=== PATIENT | female | born 1975 | race American Indian/Alaskan Native ===

== ENCOUNTER 2019-03-01 08:48 | Emergency (ER) | payer SELFPAY ==
[2019-03-01 08:57] VITALS: BP 140/62
[2019-03-01] MEDS ORDERED: TORADOL IV ONE (09:36)
[2019-03-01] MEDS ORDERED: BENADRYL IV ONE (09:36)
[2019-03-01] MEDS ORDERED: NACL 0.9% 1000 ML 1,000 ML IV ONE (09:36)
[2019-03-01] MEDS ORDERED: REGLAN IV ONE (09:36)
--- NOTE | 2019-03-01 09:48 | Emergency Department Report ---
ED Headache HPI - General Chief Complaint: Headache Stated Complaint: SOB/MIGRAINE Time Seen by Provider: 03/01/19 09:09 - History of Present Illness Initial Comments: 43-year-old female presents to ED with headache 3 days. Patient reports pain is right-sided, with associated photophobia, nausea and vomiting. Patient reports history of migraines and anemia. States this migraine was associated with aura of flashing lights, which she usually does not have. Denies any numbness, tingling, weakness. No relief with [id number]-[id number] meds. Patient states last migraine was one year ago. Patient also reports that she has been having dyspnea on exertion for the last couple of days. Reports history of asthma. Denies cough, fever. Reports chronic lower extremity swelling, however no change or increase in the swelling. Timing/Duration: episodic, other (3 days) Quality: moderate Modifying Factors: worse with: exposure to light, movement Associated Symptoms: nausea/vomiting. denies: fever/chills, numbness in legs/feet, stiff neck, vision changes Allergies/Adverse Reactions: Allergies No Known Allergies Allergy (Unverified 03/01/19 08:53) Home Medications: Ambulatory Orders Butalb/Acetamin/Caff 50-325-40 [Fioricet] 1 tab PO Q6HR PRN #10 tab 03/01/19 Ferrous Sulfate [Iron 325 MG] 325 mg PO TID #90 tablet 03/01/19 ED Review of Systems ROS: Stated complaint: SOB/MIGRAINE Other details as noted in HPI Comment: All other systems reviewed and negative Constitutional: denies: chills, fever Respiratory: shortness of breath. denies: cough Cardiovascular: chest pain Gastrointestinal: nausea, vomiting Neurological: headache. denies: numbness, paresthesias ED Past Medical Hx - Past Medical History Previous Medical History?: Yes Hx Arthritis: Yes Hx Headaches / Migraines: Yes Hx Asthma: Yes - Surgical History Past Surgical History?: Yes Additional Surgical History: C section - Social History Smoking Status: Never Smoker Substance Use Type: None - Medications Home Medications: Home Medications Medication Instructions Recorded Confirmed Last Taken Type Butalb/Acetamin/Caff 50-325-40 1 tab PO Q6HR PRN #10 tab 03/01/19 Unknown Rx [Fioricet] Ferrous Sulfate [Iron 325 MG] 325 mg PO TID #90 tablet 03/01/19 Unknown Rx ED Physical Exam - General Limitations: No Limitations General appearance: alert, in no apparent distress, obese - Head Head exam: Present: atraumatic, normocephalic - Eye Eye exam: Present: normal appearance - ENT ENT exam: Present: mucous membranes moist - Neck Neck exam: Present: normal inspection. Absent: meningismus - Respiratory Respiratory exam: Present: normal lung sounds bilaterally. Absent: respiratory distress, wheezes - Cardiovascular Cardiovascular Exam: Present: regular rate, normal rhythm - GI/Abdominal GI/Abdominal exam: Absent: distended - Extremities Exam Extremities exam: Present: pedal edema. Absent: calf tenderness - Neurological Exam Neurological exam: Present: alert, oriented X3, CN II-XII intact. Absent: motor sensory deficit - Psychiatric Psychiatric exam: Present: normal affect, normal mood - Skin Skin exam: Present: warm, dry, intact, normal color ED Course Vital Signs 03/01/19 08:55 Temperature 98.0 F Pulse Rate 71 Respiratory 18 Rate Blood Pressure 140/62 O2 Sat by Pulse 97 Oximetry ED Medical Decision Making - Lab Data Result diagrams: 03/01/19 09:39 03/01/19 09:39 - EKG Data -: EKG Interpreted by Sc EKG shows normal: sinus rhythm, axis, intervals, QRS complexes, ST-T waves Rate: normal - EKG Data Interpretation: no acute changes - Radiology Data Radiology results: report reviewed, image reviewed - Medical Decision Making - migraine DICKSON resolved - cardiac workup unremarkable; EKG, trop negative - CXR negative - SOB poss due to anemia - not currently taking iron pills, will prescribe - return precautions given - outpt f/u advised - Differential Diagnosis migraine, ACS, pneumonia, pulm edema, anemia Critical care attestation.: If time is entered above; I have spent that time in minutes in the direct care of this critically ill patient, excluding procedure time. ED Disposition Clinical Impression: Migraine, Anemia Disposition: DC-01 TO HOME OR SELFCARE Is pt being admited?: No Condition: Stable Instructions: Migraine Headache (ED), Iron Deficiency Anemia (ED), Anemia (ED) Prescriptions: Butalb/Acetamin/Caff 50-325-40 [Fioricet] 1 tab PO Q6HR PRN #10 tab PRN Reason: Headache Ferrous Sulfate [Iron 325 MG] 325 mg PO TID #90 tablet Referrals: [facility] MD THANIA [Primary Care Provider] - 3-5 Days Forms: Work/School Release Form(ED) Time of Disposition: 13:13
[2019-03-01 10:06] LABS: Basophils % (Auto) 0.5 % (0.0-1.8); Eosinophils # (Auto) 0.2 K/mm3 (0.0-0.4); Eosinophils % (Auto) 3.3 % (0.0-4.3); Hematocrit 22.4 % (30.3-42.9); Hemoglobin 6.9 gm/dl (10.1-14.3); Lymphocytes # (Auto) 1.5 K/mm3 (1.2-5.4); Lymphocytes % (Auto) 26.9 % (13.4-35.0); Mean Corpuscular HGB Conc 31 % (30-34); Monocytes # (Auto) 0.6 K/mm3 (0.0-0.8); Platelet Count 275 K/mm3 (140-440); Red Blood Count 3.39 M/mm3 (3.65-5.03); Red Cell Distribution Width 17.7 % (13.2-15.2)
[2019-03-01 10:11] LABS: Mean Corpuscular Volume 66 fl (79-97)
[2019-03-01 10:20] LABS: BUN/Creatinine Ratio 16; Blood Urea Nitrogen 13 mg/dL (7-17); Calcium 8.5 mg/dL (8.4-10.2); Hemolysis Index 0
--- NOTE | 2019-03-01 10:41 | XRay Report ---
ROUTINE CHEST, TWO VIEWS: HISTORY: Cough. The trachea, heart, mediastinal contour, lung rivera and bony thorax are unremarkable. IMPRESSION: Unremarkable chest x-ray.
--- NOTE | 2019-03-01 13:13 | Cat Scan Report ---
CT HEAD WITHOUT CONTRAST: HISTORY: Headache. TECHNIQUE: Sequential 2.5mm CT images. COMPARISON: none. FINDINGS: Cerebral Parenchyma: Within normal limits. Cerebellum: Within normal limits. Brainstem: Within normal limits. Ventricles: Normal. Sella: Normal. Extra-axial spaces: Normal. Basal Cisterns: Normal. Intracranial Hemorrhage: None. Midline Shift: None. Calvarium: Normal. Sinuses: Normal. Mastoid Air Cells: Normal. Visualized Orbits: Normal. IMPRESSION: Cranial CT scan within normal limits.
== END 2019-03-01 13:29 | disposition home or self-care (01) ==
LOC: ED 08:48
DX: G43.909 Migraine, unspecified, not intractable, without status migrainosus (principal); D64.9 Anemia, unspecified; J45.909 Unspecified asthma, uncomplicated; M19.90 Unspecified osteoarthritis, unspecified site; R11.2 Nausea with vomiting, unspecified
CPT/HCPCS: 36415; 70450; 71046; 80048; 83880; 84484; 84703; 85025; 93005; 93010; 96361; 96374; 96375; 99284; J1200; J1885; J2765; J7030

== ENCOUNTER 2019-08-15 01:47 | Emergency (ER) | payer BC ==
--- NOTE | 2019-08-15 05:30 | Emergency Department Report ---
Upper Extremity - HPI Chief Complaint: Extremity Problem,Nontraumatic Stated Complaint: WRIST PAIN, ARM PAIN Time Seen by Provider: 08/15/19 04:51 Other History: Patient is a 44-year-old female presents emergency room with complaints of right upper arm pain and right wrist pain that began yesterday. pt believes she slept wrong on the arm the night before. she states she occasionally has tingling in her fingers. she states that she has a hx of arthritis and carpal tunnel. 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 she denies any fall, injury, or weakness. PMHx migraines, sciatica. she denies any allergies to meds. pt states that she has an orthopedic doctor in [place]. ED Review of Systems ROS: Stated complaint: WRIST PAIN, ARM PAIN Other details as noted in HPI Comment: All other systems reviewed and negative ED Past Medical Hx - Past Medical History Previous Medical History?: Yes Hx Arthritis: Yes Hx Headaches / Migraines: Yes Hx Asthma: Yes - Surgical History Past Surgical History?: Yes Additional Surgical History: C section - Social History Smoking Status: Never Smoker Substance Use Type: None - Medications Home Medications: Home Medications Medication Instructions Recorded Confirmed Last Taken Type Butalb/Acetamin/Caff 50-325-40 1 tab PO Q6HR PRN #10 tab 03/01/19 Unknown Rx [Fioricet] Ferrous Sulfate [Iron 325 MG] 325 mg PO TID #90 tablet 03/01/19 Unknown Rx Cyclobenzaprine [Flexeril] 10 mg PO QHS PRN #12 tablet 08/15/19 Unknown Rx Naproxen [EC-Naproxen] 500 mg PO BID PRN #14 tablet. 08/15/19 Unknown Rx Upper Extremity Exam - Exam General: Vital signs noted. No distress. Alert and acting appropriately. Shoulder Exam: Yes Normal Range of Motion in Shoulder (mild discomfort upon full flexion), No Shoulder Tenderness, No Clavicle Tenderness, No Shoulder Deformity, No AC Joint Tenderness Arm Exam: Yes Arm/Humerus Tenderness (mild TTP of the right upper arm, no deformity, no ecchymosis, no erythema, no edema, FROM of the RUE) Elbow: Yes Normal Range of Motion in Elbow, No Elbow Tenderness, No Elbow Deformity Forearm: No Forearm Tenderness, No Forearm Deformity, No Pain with Pronation, No Pain with Supination Wrist: Yes Normal ROM in Wrist (mild discomfort with flexion and extension), No Wrist Tenderness, No Wrist Deformity, No Snuffbox Tenderness, No Pain with Axial Thumb Compression Hand: Yes Normal ROM in Digit(s), No Hand Tenderness, No Hand Deformity, No Digit Tenderness, No Digit(s) Deformity, No Tendon Dysfunction CMS Exam: Yes Normal Distal Pulses, Yes Normal Capillary Refill, Yes Normal Distal Sensation, No Broken Skin ED Medical Decision Making - Medical Decision Making Patient is a 44-year-old female presents emergency room with complaints of right upper arm pain and right wrist pain that began yesterday. pt believes she slept wrong on the arm the night before. she states she occasionally has tingling in her fingers. she states that she has a hx of arthritis and carpal tunnel. 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 she denies any fall, injury, or weakness. PMHx migraines, sciatica. she denies any allergies to meds. pt states that she has an orthopedic doctor in [place]. VSS. on exam: mild discomfort upon full flexion of the right shoulder, FROM of the right shoulder, no bony TTP, no AC joint tenderness, no sulcus sign, clavicles are equal, mild TTP of the right upper arm, no deformity, no ecchymosis, no erythema, no edema, FROM of the RUE, mild discomfort with flexion and extension of the right wrist, FROM of the right wrist, no bony TTP, no snuffbox tenderness, no edema, no ecchymosis, no erythema, neurovascularly intact. Patient given prescription for naproxen and Flexeril. advised pt to please take medication as prescribed as needed. Do not drive or operate heavy machinery while taking muscle relaxer. May use ice pack, heating pad, rest,epsom salt bath. Follow-up with your orthopedic doctor in the next 2-3 days. Return to the emergency room for any new or worsening symptoms. - Differential Diagnosis strain, sprain, carpal tunnel, arthritis, DJD Critical care attestation.: If time is entered above; I have spent that time in minutes in the direct care of this critically ill patient, excluding procedure time. ED Disposition Clinical Impression: Right arm pain Disposition: TO HOME OR SELFCARE Is pt being admited?: No Does the pt Need Aspirin: No Condition: Stable Instructions: Carpal Tunnel Syndrome (ED), Arthralgia (ED) Additional Instructions: Please take medication as prescribed as needed. Do not drive or operate heavy machinery while taking muscle relaxer. May use ice pack, heating pad, rest,epsom salt bath. Follow-up with your orthopedic doctor in the next 2-3 days. Return to the emergency room for any new or worsening symptoms. Prescriptions: Cyclobenzaprine [Flexeril] 10 mg PO QHS PRN #12 tablet PRN Reason: Muscle Spasm Naproxen [EC-Naproxen] 500 mg PO BID PRN #14 tablet.dr NEGRON Reason: pain Referrals: your, orthopedic doctor [Other] - 2-3 Days Time of Disposition: 05:29 Print Language: SWEDISH
[2019-08-15] MEDS ORDERED: traMADol 50 MG TAB PO ONE (05:31)
[2019-08-15 06:28] VITALS: BP 141/85
== END 2019-08-15 06:36 | disposition home or self-care (01) ==
LOC: ED 01:47
DX: M79.621 Pain in right upper arm (principal); M25.531 Pain in right wrist; M19.90 Unspecified osteoarthritis, unspecified site; G43.909 Migraine, unspecified, not intractable, without status migrainosus; Z79.899 Other long term (current) drug therapy

== ENCOUNTER 2020-02-21 11:32 | Emergency (ER) | payer SELFPAY ==
--- NOTE | 2020-02-21 11:55 | Emergency Department Report ---
Blank Doc - Documentation Documentation: 44-year-old female that presents with heavy vaginal bleeding and clots x2 weeks. Stated is being treated for anemia. Stated has SOB and becomes diaphoretic at times. This initial assessment/diagnostic orders/clinical plan/treatment(s) is/are subject to change based on patient's health status, clinical progression and re- assessment by fellow clinical providers in the ED. Further treatment and workup at subsequent clinical providers discretion. Patient/guardians urged not to elope from the ED as their condition may be serious if not clinically assessed and managed. Initial orders include: 1- Patient sent to [facility] for further evaluation and treatment 2- cardiac workup 3- UA
[2020-02-21 12:28] LABS: Basophils % (Auto) 0.9 % (0.0-1.8); Eosinophils # (Auto) 0.2 K/mm3 (0.0-0.4); Eosinophils % (Auto) 3.6 % (0.0-4.3); Hematocrit 35.5 % (30.3-42.9); Hemoglobin 11.8 gm/dl (10.1-14.3); Lymphocytes # (Auto) 1.4 K/mm3 (1.2-5.4); Lymphocytes % (Auto) 29.5 % (13.4-35.0); Mean Corpuscular HGB Conc 33 % (30-34); Mean Corpuscular Volume 84 fl (79-97); Monocytes # (Auto) 0.4 K/mm3 (0.0-0.8); Monocytes % (Auto) 9.1 % (0.0-7.3); Platelet Count 244 K/mm3 (140-440); Red Blood Count 4.23 M/mm3 (3.65-5.03); Red Cell Distribution Width 16.6 % (13.2-15.2)
[2020-02-21 12:37] LABS: INR 1.09 (0.87-1.13)
[2020-02-21 12:53] LABS: Alanine Aminotransferase 13 units/L (7-56); Albumin 3.9 g/dL (3.9-5); BUN/Creatinine Ratio 15; Blood Urea Nitrogen 12 mg/dL (7-17); Hemolysis Index 6
[2020-02-21 13:42] LABS: Bilirubin,Urine NEG (Negative); Blood,Urine LG (Negative); Color,Urine Yellow (Yellow); Mucus,Urine FEW /HPF; RBC,Urine > 182.0 /HPF (0.0-6.0); Urobilinogen,Urine < 2.0 mg/dL (<2.0)
--- NOTE | 2020-02-21 14:23 | XRay Report ---
CHEST 2 VIEWS INDICATION: Chest Pain. COMPARISON: 03/01/2019. FINDINGS: Support devices: None. Heart: Within normal limits. Lungs/Pleura: No acute air space or interstitial disease. No significant pleural effusion. IMPRESSION: No acute findings. Signer Name: Henrry Jacinto MD Signed: 02/21/2020 2:18 PM Workstation Name: [id number]
--- NOTE | 2020-02-21 15:15 | Emergency Department Report ---
ED General Adult HPI - General Chief complaint: Vaginal Bleeding Stated complaint: BLEEDING [id number]/SOB/SWEATING Time Seen by Provider: 02/21/20 11:52 Source: patient Mode of arrival: Ambulatory Limitations: No Limitations - History of Present Illness Initial comments: 44-year-old -[place] female patient with history of asthma, migraines, and arthritis presents with complaints of heavy vaginal bleeding for the past 2 weeks along with shortness of breath with exertion and diaphoresis. Patient states she has been taking iron for anemia for the past 6 months and follows with her PCP for this. She denies history of uterine fibroids, however states 2 years ago she had a uterine ultrasound performed that showed a mass that she was instructed to follow-up on but did not do so. She denies any abdominal pain, cough, fever/chills/sweats, chest pain, dizziness, leg pain/swelling, recent long travel/surgeries, hemoptysis, hormone use, or history of cancer. Patient states she is going through a new pad every 2-4 hours. She is not currently following with an [employer]. - Related Data Previous Rx's Medication Instructions Recorded Last Taken Type Butalb/Acetamin/Caff 50-325-40 1 tab PO Q6HR PRN #10 tab 03/01/19 Unknown Rx [Fioricet] Ferrous Sulfate [Iron 325 MG] 325 mg PO TID #90 tablet 03/01/19 Unknown Rx Cyclobenzaprine [Flexeril] 10 mg PO QHS PRN #12 tablet 08/15/19 Unknown Rx Naproxen [EC-Naproxen] 500 mg PO BID PRN #14 tablet. 08/15/19 Unknown Rx Sulfamethoxazole/Trimethoprim 1 each PO BID 5 Days #10 tablet 02/21/20 Unknown Rx [Bactrim DS TAB] Allergies Allergy/AdvReac Type Severity Reaction Status Date / Time No Known Allergies Allergy Unverified 03/01/19 08:53 ED Review of Systems ROS: Stated complaint: BLEEDING [id number]/SOB/SWEATING Other details as noted in HPI Constitutional: diaphoresis, malaise. denies: chills, fever Respiratory: SOB with exertion. denies: cough, SOB at rest Cardiovascular: edema (States chronic bilateral pedal edema). denies: chest pain, palpitations Gastrointestinal: denies: abdominal pain, nausea, diarrhea, constipation Genitourinary: abnormal menses. denies: urgency, dysuria, frequency, hematuria, discharge Musculoskeletal: denies: back pain Skin: denies: rash, lesions Neurological: denies: headache, weakness Hematological/Lymphatic: denies: easy bleeding, swollen glands ED Past Medical Hx - Past Medical History Previous Medical History?: Yes Hx Arthritis: Yes Hx Headaches / Migraines: Yes Hx Asthma: Yes - Surgical History Past Surgical History?: Yes Additional Surgical History: C section - Social History Smoking Status: Never Smoker Substance Use Type: None - Medications Home Medications: Home Medications Medication Instructions Recorded Confirmed Last Taken Type Butalb/Acetamin/Caff 50-325-40 1 tab PO Q6HR PRN #10 tab 03/01/19 Unknown Rx [Fioricet] Ferrous Sulfate [Iron 325 MG] 325 mg PO TID #90 tablet 03/01/19 Unknown Rx Cyclobenzaprine [Flexeril] 10 mg PO QHS PRN #12 tablet 08/15/19 Unknown Rx Naproxen [EC-Naproxen] 500 mg PO BID PRN #14 tablet.dr 08/15/19 Unknown Rx Sulfamethoxazole/Trimethoprim 1 each PO BID 5 Days #10 tablet 02/21/20 Unknown Rx [Bactrim DS TAB] ED Physical Exam - General Limitations: No Limitations General appearance: alert, in no apparent distress, obese - Head Head exam: Present: atraumatic, normocephalic - Eye Eye exam: Present: normal appearance. Absent: scleral icterus - Neck Neck exam: Present: normal inspection - Respiratory Respiratory exam: Present: normal lung sounds bilaterally. Absent: respiratory distress, chest wall tenderness - Cardiovascular Cardiovascular Exam: Present: regular rate, normal rhythm. Absent: systolic murmur, diastolic murmur, rubs, gallop - GI/Abdominal GI/Abdominal exam: Present: soft, normal bowel sounds. Absent: distended, tenderness, guarding, rebound, rigid - Extremities Exam Extremities exam: Present: normal inspection, pedal edema (Bilateral nonpitting). Absent: calf tenderness (No lower leg swelling noted) - Back Exam Back exam: Present: full ROM. Absent: CVA tenderness (R), CVA tenderness (L) - Neurological Exam Neurological exam: Present: alert, oriented X3 - Psychiatric Psychiatric exam: Present: normal affect, normal mood - Skin Skin exam: Present: warm, dry, intact, normal color. Absent: rash, cyanosis, diaphoretic, erythema, petechiae, ecchymosis ED Course Vital Signs 02/21/20 02/21/20 02/21/20 11:53 11:59 16:43 Temperature 97.9 F Pulse Rate 79 93 H Respiratory 20 Rate Blood Pressure 182/101 146/98 Blood Pressure 145/90 [Right] O2 Sat by Pulse 97 99 Oximetry 02/21/20 16:52 Temperature Pulse Rate Respiratory 18 Rate Blood Pressure Blood Pressure [Right] O2 Sat by Pulse 99 Oximetry ED Medical Decision Making - Lab Data Result diagrams: 02/21/20 12:00 02/21/20 12:00 Lab Results 02/21/20 02/21/20 02/21/20 Range/Units 12:00 12:00 12:00 WBC 4.9 (4.5-11.0) K/mm3 RBC 4.23 (3.65-5.03) M/mm3 Hgb 11.8 (10.1-14.3) gm/dl Hct 35.5 (30.3-42.9) % MCV 84 (79-97) fl MCH 28 (28-32) pg MCHC 33 (30-34) % RDW 16.6 H (13.2-15.2) % Plt Count 244 (140-440) K/mm3 Lymph % (Auto) 29.5 (13.4-35.0) % [place] % (Auto) 9.1 H (0.0-7.3) % Eos % (Auto) 3.6 (0.0-4.3) % Baso % (Auto) 0.9 (0.0-1.8) % Lymph # 1.4 (1.2-5.4) K/mm3 [place] # 0.4 (0.0-0.8) K/mm3 Eos # 0.2 (0.0-0.4) K/mm3 Baso # 0.0 (0.0-0.1) K/mm3 Seg Neutrophils % 56.9 (40.0-70.0) % Seg Neutrophils # 2.8 (1.8-7.7) K/mm3 PT 13.9 (12.2-14.9) Sec. INR 1.09 (0.87-1.13) APTT 33.0 (24.2-36.6) Sec. Sodium 138 (137-145) mmol/L Potassium 3.9 (3.6-5.0) mmol/L Chloride 105.5 (98-107) mmol/L Carbon Dioxide 21 L (22-30) mmol/L Anion Gap 15 mmol/L BUN 12 (7-17) mg/dL Creatinine 0.8 (0.7-1.2) mg/dL Estimated GFR > 60 ml/min BUN/Creatinine Ratio 15 % Glucose 101 H (65-100) mg/dL Calcium 9.0 (8.4-10.2) mg/dL Total Bilirubin 0.40 (0.1-1.2) mg/dL AST 15 (5-40) units/L ALT 13 (7-56) units/L Alkaline Phosphatase 73 (35-129) units/L Troponin T < 0.010 (0.00-0.029) ng/mL Total Protein 6.8 (6.3-8.2) g/dL Albumin 3.9 (3.9-5) g/dL Albumin/Globulin Ratio 1.3 % HCG, Qual (Negative) Urine Color (Yellow) Urine Turbidity (Clear) Urine pH (5.0-7.0) Ur Specific [place] (1.003-1.030) Urine Protein (Negative) mg/dL Urine Glucose (UA) (Negative) mg/dL Urine Ketones (Negative) mg/dL Urine Blood (Negative) Urine Nitrite (Negative) Urine Bilirubin (Negative) Urine Urobilinogen (<2.0) mg/dL Ur Leukocyte Esterase (Negative) Urine WBC (Auto) (0.0-6.0) /HPF Urine RBC (Auto) (0.0-6.0) /HPF U Epithel Cells (Auto) (0-13.0) /HPF Urine Mucus /HPF 02/21/20 02/21/20 Range/Units 12:00 Unknown WBC (4.5-11.0) K/mm3 RBC (3.65-5.03) M/mm3 Hgb (10.1-14.3) gm/dl Hct (30.3-42.9) % MCV (79-97) fl MCH (28-32) pg MCHC (30-34) % RDW (13.2-15.2) % Plt Count (140-440) K/mm3 Lymph % (Auto) (13.4-35.0) % [place] % (Auto) (0.0-7.3) % Eos % (Auto) (0.0-4.3) % Baso % (Auto) (0.0-1.8) % Lymph # (1.2-5.4) K/mm3 [place] # (0.0-0.8) K/mm3 Eos # (0.0-0.4) K/mm3 Baso # (0.0-0.1) K/mm3 Seg Neutrophils % (40.0-70.0) % Seg Neutrophils # (1.8-7.7) K/mm3 PT (12.2-14.9) Sec. INR (0.87-1.13) APTT (24.2-36.6) Sec. Sodium (137-145) mmol/L Potassium (3.6-5.0) mmol/L Chloride (98-107) mmol/L Carbon Dioxide (22-30) mmol/L Anion Gap mmol/L BUN (7-17) mg/dL Creatinine (0.7-1.2) mg/dL Estimated GFR ml/min BUN/Creatinine Ratio % Glucose (65-100) mg/dL Calcium (8.4-10.2) mg/dL Total Bilirubin (0.1-1.2) mg/dL AST (5-40) units/L ALT (7-56) units/L Alkaline Phosphatase (35-129) units/L Troponin T (0.00-0.029) ng/mL Total Protein (6.3-8.2) g/dL Albumin (3.9-5) g/dL Albumin/Globulin Ratio % HCG, Qual Negative (Negative) Urine Color Yellow (Yellow) Urine Turbidity Slightly-cloudy (Clear) Urine pH 6.0 (5.0-7.0) Ur Specific [place] 1.019 (1.003-1.030) Urine Protein 30 mg/dl (Negative) mg/dL Urine Glucose (UA) Neg (Negative) mg/dL Urine Ketones Neg (Negative) mg/dL Urine Blood Lg (Negative) Urine Nitrite Neg (Negative) Urine Bilirubin Neg (Negative) Urine Urobilinogen < 2.0 (<2.0) mg/dL Ur Leukocyte Esterase Neg (Negative) Urine WBC (Auto) 27.0 H (0.0-6.0) /HPF Urine RBC (Auto) > 182.0 (0.0-6.0) /HPF U Epithel Cells (Auto) 7.0 (0-13.0) /HPF Urine Mucus Few /HPF - EKG Data EKG shows normal: sinus rhythm Rate: bradycardia (58) - Radiology Data Radiology results: report reviewed Transvaginal. Duplex Color Doppler used: Yes. COMPARISON: None available FINDINGS: UTERUS: - Appearance: Enlarged - Size (cm): 13.4 x 8.0 x 9.8 - Endometrial Complex (if present): No significant abnormality.. Thickness in cm (if measured) = 1.1 - Mass or cyst: Small fibroid of the anterior fundus is slightly exophytic and measures 2.3 cm. - Additional findings: Small to both in cysts of the cervix. RIGHT ADNEXA: No significant ovarian cyst or mass. Normal color Doppler blood flow. LEFT ADNEXA: Cyst versus follicle measuring 2.4 cm. Normal color Doppler blood flow. URINARY BLADDER: Not visualized. FREE FLUID: None. ADDITIONAL FINDINGS: None. IMPRESSION: 1. Enlarged uterus with small exophytic fibroid. 2. 2.4 cm cyst versus follicle of the left ovary. CHEST 2 VIEWS INDICATION: Chest Pain. COMPARISON: 03/01/2019. FINDINGS: Support devices: None. Heart: Within normal limits. Lungs/Pleura: No acute air space or interstitial disease. No significant pleural effusion. IMPRESSION: No acute findings. - Medical Decision Making 44-year-old -[place] female patient here with 2 weeks of heavy vaginal bleeding and shortness of breath with exertion only. PERC score = 0, Wells score = 0. CBC, CMP, and troponin are WNL. Chest x-ray is normal. Patient mentioned history of an abnormal mass in her uterus, so a transvaginal ultrasound was performed that showed a pedunculated fibroid and ovarian cyst. UA is positive for UTI. Vitals are normal. Patient is well-appearing and stable for discharge home. Recommend follow-up with primary care provider in 3 to 5 days. Strict return precautions were discussed in great detail with patient who verbalized understanding. Critical care attestation.: If time is entered above; I have spent that time in minutes in the direct care of this critically ill patient, excluding procedure time. ED Disposition Clinical Impression: Dysmenorrhea, Pedunculated leiomyoma of uterus UTI (urinary tract infection) Qualifiers: Urinary tract infection type: acute cystitis Hematuria presence: without hematuria Qualified Code(s): N30.00 - Acute cystitis without hematuria Disposition: TO HOME OR SELFCARE Is pt being admited?: No Condition: Stable Instructions: Urinary Tract Infection in Women (ED), Uterine Fibroids (ED), Dysmenorrhea (ED) Prescriptions: Sulfamethoxazole/Trimethoprim [Bactrim DS TAB] 1 each PO BID 5 Days #10 tablet Referrals: PRIMARY CARE, [Primary Care Provider] - 3-5 Days Forms: Work/School Release Form(ED)
--- NOTE | 2020-02-21 16:47 | Ultrasound Report ---
ULTRASOUND PELVIS INDICATION / CLINICAL INFORMATION: abnormal vaginal bleeding, hx of uterine mass. TECHNIQUE: Transvaginal. Duplex Color Doppler used: Yes. COMPARISON: None available FINDINGS: UTERUS: - Appearance: Enlarged - Size (cm): 13.4 x 8.0 x 9.8 - Endometrial Complex (if present): No significant abnormality.. Thickness in cm (if measured) = 1.1 - Mass or cyst: Small fibroid of the anterior fundus is slightly exophytic and measures 2.3 cm. - Additional findings: Small to both in cysts of the cervix. RIGHT ADNEXA: No significant ovarian cyst or mass. Normal color Doppler blood flow. LEFT ADNEXA: Cyst versus follicle measuring 2.4 cm. Normal color Doppler blood flow. URINARY BLADDER: Not visualized. FREE FLUID: None. ADDITIONAL FINDINGS: None. IMPRESSION: 1. Enlarged uterus with small exophytic fibroid. 2. 2.4 cm cyst versus follicle of the left ovary. Signer Name: Gordon Corley MD Signed: 02/21/2020 4:42 PM Workstation Name: [id number]
[2020-02-21 16:51] VITALS: BP 146/98
== END 2020-02-21 18:07 | disposition home or self-care (01) ==
LOC: ED 11:32
DX: D25.9 Leiomyoma of uterus, unspecified (principal); N39.0 Urinary tract infection, site not specified; N94.6 Dysmenorrhea, unspecified; M19.90 Unspecified osteoarthritis, unspecified site; G43.909 Migraine, unspecified, not intractable, without status migrainosus; J45.909 Unspecified asthma, uncomplicated; Z79.899 Other long term (current) drug therapy; Z98.890 Other specified postprocedural states
CPT/HCPCS: 36415; 71046; 76830; 80053; 81001; 84484; 84703; 85025; 85610; 85730; 87086; 93005

== ENCOUNTER 2020-07-31 10:55 | Emergency (ER) | payer OTHER ==
--- NOTE | 2020-07-31 11:40 | Event Note ---
ED Screening Note Date of service: 07/31/20 Time: 11:37 ED Screening Note: 45-year-old obese -[place] female presents to the emergency room stating that she has had a headache and is already taking Aleve 1 pill once a day. Patient states that she has been dealing with this for about 5 days and headaches got worse today. Patient states that she last took Aleve this morning but 1 dose. Patient is only taking 1 dose of Aleve daily where it should be twice a day. Patient reports that she was seen at her doctor before and was told that her blood pressure was fine. Patient was last placed on blood pressure medication here February 27, 2020 of amlodipine and hydrochlorothiazide. This initial assessment/diagnostic orders/clinical plan/treatment(s) is/are subject to change based on patients health status, clinical progression and re- assessment by fellow clinical providers in the ED. Further treatment and workup at subsequent clinical providers discretion. Patient/guardian urged not to elope from the ED as their condition may be serious if not clinically assessed and managed. Initial orders include:
[2020-07-31] MEDS ORDERED: diphenhydrAMINE 25 MG CAP PO ONE (12:45)
[2020-07-31] MEDS ORDERED: SUMAtriptan SUCCINATE 6 MG/0.5 ML INJ SUB-Q ONE (12:45)
[2020-07-31] MEDS ORDERED: METOCLOPRAMIDE 10 MG TAB PO ONE (12:45)
--- NOTE | 2020-07-31 13:15 | Emergency Department Report ---
ED Headache HPI - General Chief Complaint: Headache Stated Complaint: HEADACHE Time Seen by Provider: 07/31/20 12:32 - History of Present Illness Initial Comments: Patient is a 45-year-old female presents emergency room with complaints of an intermittent headache that began 4 days ago. She states that she initially had it 4 days ago but it resolved after taking ibuprofen. She states that today she began to have a left frontal and headache behind the left eye that began while she was at work today. She did not take anything for her symptoms today. She states that her eyes began to water and her nose began to run. She denies any nausea, vomiting, diarrhea, fever, neck stiffness, numbness, weakness, gait disturbance, speech disturbance, vision changes. She has a past medical history of migraines but is not currently on any migraine medication. She denies any allergies to medications. She had a normal CT head in 2019. Allergies/Adverse Reactions: Allergies No Known Allergies Allergy (Unverified 03/01/19 08:53) Home Medications: Ambulatory Orders Ferrous Sulfate [Iron 325 MG] 325 mg PO TID #90 tablet 03/01/19 Cyclobenzaprine [Flexeril 10 MG TAB] 10 mg PO QHS PRN #12 tablet 08/15/19 Famotidine [Pepcid] 20 mg PO BID #30 tablet 02/27/20 hydroCHLOROthiazide [HCTZ] 25 mg PO QDAY #30 tablet 02/27/20 Butalb/Acetamin/Caff 50-325-40 [Fioricet 50-325-40] 1 tab PO Q8HR PRN #12 tab 07/31/20 amLODIPine 5 mg PO QDAY #30 tablet 07/31/20 ED Review of Systems ROS: Stated complaint: HEADACHE Other details as noted in HPI Comment: All other systems reviewed and negative ED Past Medical Hx - Past Medical History Hx Hypertension: Yes Hx Arthritis: Yes Hx Headaches / Migraines: Yes Hx Asthma: Yes - Surgical History Additional Surgical History: C section - Social History Smoking Status: Never Smoker - Medications Home Medications: Home Medications Medication Instructions Recorded Confirmed Last Taken Type Ferrous Sulfate [Iron 325 MG] 325 mg PO TID #90 tablet 03/01/19 02/27/20 Unknown Rx Cyclobenzaprine [Flexeril 10 MG 10 mg PO QHS PRN #12 tablet 08/15/19 02/27/20 02/26/20 20:00 Rx TAB] Famotidine [Pepcid] 20 mg PO BID #30 tablet 02/27/20 Unknown Rx hydroCHLOROthiazide [HCTZ] 25 mg PO QDAY #30 tablet 02/27/20 Unknown Rx Butalb/Acetamin/Caff 50-325-40 1 tab PO Q8HR PRN #12 tab 07/31/20 Unknown Rx [Fioricet 50-325-40] amLODIPine 5 mg PO QDAY #30 tablet 07/31/20 Unknown Rx ED Physical Exam - General Limitations: No Limitations General appearance: alert, in no apparent distress - Head Head exam: Present: atraumatic, normocephalic - Eye Eye exam: Present: normal appearance, PERRL, EOMI. Absent: periorbital swelling, periorbital tenderness Pupils: Present: normal accommodation - ENT ENT exam: Present: mucous membranes moist - Respiratory Respiratory exam: Present: normal lung sounds bilaterally. Absent: respiratory distress, wheezes, rales, rhonchi, stridor, chest wall tenderness, accessory muscle use, decreased breath sounds, prolonged expiratory - Cardiovascular Cardiovascular Exam: Present: regular rate, normal rhythm, normal heart sounds. Absent: systolic murmur, diastolic murmur, rubs, gallop - Neurological Exam Neurological exam: Present: alert, oriented X3, CN II-XII intact, normal gait. Absent: motor sensory deficit - Psychiatric Psychiatric exam: Present: normal affect, normal mood - Skin Skin exam: Present: warm, dry, intact ED Course Vital Signs 07/31/20 07/31/20 11:00 14:12 Temperature 97.7 F 98.0 F Pulse Rate 64 55 L Respiratory 17 18 Rate Blood Pressure 146/102 Blood Pressure 184/71 [Left] O2 Sat by Pulse 100 99 Oximetry ED Medical Decision Making - Medical Decision Making Patient is a 45-year-old female presents emergency room with complaints of an intermittent headache that began 4 days ago. She states that she initially had it 4 days ago but it resolved after taking ibuprofen. She states that today she began to have a left frontal and headache behind the left eye that began while she was at work today. She did not take anything for her symptoms today. She states that her eyes began to water and her nose began to run. She denies any nausea, vomiting, diarrhea, fever, neck stiffness, numbness, weakness, gait disturbance, speech disturbance, vision changes. She has a past medical history of migraines but is not currently on any migraine medication. She denies any allergies to medications. She had a normal CT head in 2019. vitals with elevated blood pressure, otherwise stable. She states that she did previously take blood pressure medication in February but was taken off by her primary care doctor and has not been monitoring her blood pressure. Patient given Imitrex, Benadryl, Reglan and her headache completely resolved and she was feeling much better and ready to go home. Patient will be placed on low-dose blood pressure medication and advised close primary care follow-up. Patient given prescription for Fioricet to take as needed for headache. Her symptoms appear most consistent with a cluster headache. advised pt Please take medication as prescri bed. Increase your water intake. Eat a low-sodium diet. Incorporate 30 to 60 minutes of daily exercise. Please keep a blood pressure log and take this to the primary care doctor. Return to emergency room for any new or worsening symptoms. Critical care attestation.: If time is entered above; I have spent that time in minutes in the direct care of this critically ill patient, excluding procedure time. ED Disposition Clinical Impression: Elevated blood pressure reading Headache Qualifiers: Headache type: unspecified Headache chronicity pattern: acute headache Intractability: not intractable Qualified Code(s): R51.9 - Headache, unspecified Disposition: DC-01 TO HOME OR SELFCARE Is pt being admited?: No Does the pt Need Aspirin: No Condition: Stable Instructions: Cluster Headache, Uylr-[id number], Low-Sodium Eating Plan Additional Instructions: Please take medication as prescribed. Increase your water intake. Eat a low- sodium diet. Incorporate 30 to 60 minutes of daily exercise. Please keep a blood pressure log and take this to the primary care doctor. Return to emergency room for any new or worsening symptoms. Prescriptions: amLODIPine 5 mg PO QDAY #30 tablet Butalb/Acetamin/Caff 50-325-40 [Fioricet 50-325-40] 1 tab PO Q8HR PRN #12 tab PRN Reason: Headache Referrals: KATHERINE TRUJILLO MD [Staff Physician] - 2-3 Days [facility] [Provider Group] - 2-3 Days Forms: Work/School Release Form(ED) Time of Disposition: 14:07 Print Language: GEORGIAN
[2020-07-31 14:13] VITALS: BP 184/71
== END 2020-07-31 14:20 | disposition home or self-care (01) ==
LOC: ED 10:55
DX: R03.0 Elevated blood-pressure reading, without diagnosis of hypertension (principal); M19.90 Unspecified osteoarthritis, unspecified site; G43.909 Migraine, unspecified, not intractable, without status migrainosus; J45.909 Unspecified asthma, uncomplicated; Z79.899 Other long term (current) drug therapy
CPT/HCPCS: 96372; 99282; J3030

== ENCOUNTER 2020-10-02 17:04 | Emergency (ER) | payer OTHER ==
--- NOTE | 2020-10-02 17:35 | Emergency Department Report ---
Blank Doc - Documentation Documentation: 45-year-old female past medical history of hypertension, asthma, arthritis, mi graines presents emerged department complaining of some issues with a dull headache associated with some dizziness off and on with numbness and tingling throughout her whole body. She reports no issues with dysphagia. Reports no loss of vision she reports no chest pain reports no palpitations she reports no trauma. Examination his holds a full conversation is no ataxia gait is coordinated and smooth strength is equal bilateral no facial asymmetry is noted. This initial assessment/diagnostic orders/clinical plan/treatment(s) is/are subject to change based on patients health status, clinical progression and re- assessment by fellow clinical providers in the ED. Further treatment and workup at subsequent clinical providers discretion. Patient/guardian urged not to elope from the ED as their condition may be serious if not clinically assessed and managed. Initial orders include: Plan will proceed with a neurological evaluation involving CT scan labs chest x- rays and EKG at this present time the patient does not appear to be presenting with a stroke
--- NOTE | 2020-10-02 18:05 | Cat Scan Report ---
CT head/brain wo con INDICATION: Stroke symptoms. TECHNIQUE: Routine CT head. All CT scans at this location are performed using CT dose reduction for A CELENA by means of automated exposure control. COMPARISON: March 01 2019 FINDINGS: Intracranial: Hogan-white matter differentiation is maintained. No intracranial hemorrhage. No extra a xial collection. No hydrocephalus. No herniation. Sinuses: Paranasal sinuses and mastoid air cells are essentially clear. Orbits: Globes are intact. Calvarium: No acute fracture. IMPRESSION: 1. No acute intracranial abnormality. Signer Name: Jaycob Redd MD Signed: 10/02/2020 6:00 PM Workstation Name: [id number]
--- NOTE | 2020-10-02 18:08 | XRay Report ---
CHEST 2 VIEWS INDICATION: dizizness. COMPARISON: 09/27/2019 FINDINGS: Support devices: None. Heart: Within normal limits. Lungs/Pleura: No acute air space or interstitial disease. No significant pleural effusion. IMPRESSION: No acute findings. Signer Name: Henrry Jacinto MD Signed: 10/02/2020 6:04 PM Workstation Name: [id number]
[2020-10-02] MEDS ORDERED: MECLIZINE 25 MG TAB PO ONE (18:22)
--- NOTE | 2020-10-02 18:35 | Emergency Department Report ---
ED General Adult HPI - General Chief complaint: Neuro Symptoms/Deficit Stated complaint: DIZZINESS, HEADACHE, TINGLING IN LEFT HAND Time Seen by Provider: 10/02/20 18:16 Source: patient Mode of arrival: Ambulatory Limitations: No Limitations - History of Present Illness Initial comments: Patient is 45-year-old female with history of hypertension and migraine. Patient presented to the ER complaining of several day history of headache, dizziness and generalized body numbness. Patient stated that she was seen by her primary care physician and diagnosed with inner ear infection and started on prednisone. Patient stated that her symptoms is not improving. Patient denied any weakness, focal numbness or tingling sensation. No bowel or bladder inco ntinence. Patient is moving all extremities with no difficulties. Patient with no evidence of ataxia. Stroke scale is 0. -: days(s) Location: head - Related Data Previous Rx's Medication Instructions Recorded Last Taken Type Ferrous Sulfate [Iron 325 MG] 325 mg PO TID #90 tablet 03/01/19 Unknown Rx Cyclobenzaprine [Flexeril 10 MG 10 mg PO QHS PRN #12 tablet 08/15/19 02/26/20 20:00 Rx TAB] Famotidine [Pepcid] 20 mg PO BID #30 tablet 02/27/20 Unknown Rx hydroCHLOROthiazide [HCTZ] 25 mg PO QDAY #30 tablet 02/27/20 Unknown Rx Butalb/Acetamin/Caff 50-325-40 1 tab PO Q8HR PRN #12 tab 07/31/20 Unknown Rx [Fioricet 50-325-40] amLODIPine 5 mg PO QDAY #30 tablet 07/31/20 Unknown Rx Allergies Allergy/AdvReac Type Severity Reaction Status Date / Time No Known Allergies Allergy Unverified 03/01/19 08:53 ED Review of Systems ROS: Stated complaint: DIZZINESS, HEADACHE, TINGLING IN LEFT HAND Other details as noted in HPI Comment: All other systems reviewed and negative Constitutional: denies: chills, fever ENT: ear pain Respiratory: denies: cough, orthopnea, shortness of breath, SOB with exertion Cardiovascular: denies: chest pain, palpitations, dyspnea on exertion Gastrointestinal: denies: abdominal pain, nausea, vomiting Musculoskeletal: denies: back pain Neurological: headache, numbness, paresthesias. denies: weakness, confusion, abnormal gait, vertigo Psychiatric: denies: suicidal thoughts ED Past Medical Hx - Past Medical History Previous Medical History?: Yes Hx Hypertension: Yes Hx Arthritis: Yes Hx Headaches / Migraines: Yes Hx Asthma: Yes - Surgical History Past Surgical History?: Yes Additional Surgical History: C section - Social History Smoking Status: Never Smoker Substance Use Type: None - Medications Home Medications: Home Medications Medication Instructions Recorded Confirmed Last Taken Type Ferrous Sulfate [Iron 325 MG] 325 mg PO TID #90 tablet 03/01/19 02/27/20 Unknown Rx Cyclobenzaprine [Flexeril 10 MG 10 mg PO QHS PRN #12 tablet 08/15/19 02/27/20 02/26/20 20:00 Rx TAB] Famotidine [Pepcid] 20 mg PO BID #30 tablet 02/27/20 Unknown Rx hydroCHLOROthiazide [HCTZ] 25 mg PO QDAY #30 tablet 02/27/20 Unknown Rx Butalb/Acetamin/Caff 50-325-40 1 tab PO Q8HR PRN #12 tab 07/31/20 Unknown Rx [Fioricet 50-325-40] amLODIPine 5 mg PO QDAY #30 tablet 07/31/20 Unknown Rx ED Physical Exam - General Limitations: No Limitations General appearance: alert, in no apparent distress - Head Head exam: Present: atraumatic, normocephalic, normal inspection - Eye Eye exam: Present: normal appearance, PERRL - ENT ENT exam: Present: normal exam, normal orophraynx, mucous membranes moist - Neck Neck exam: Present: normal inspection, full ROM. Absent: tenderness, meningismus - Respiratory Respiratory exam: Present: normal lung sounds bilaterally - Cardiovascular Cardiovascular Exam: Present: regular rate, normal rhythm, normal heart sounds - GI/Abdominal GI/Abdominal exam: Present: soft, normal bowel sounds. Absent: distended, tenderness, guarding, rebound, rigid, organomegaly, mass, hernia - Extremities Exam Extremities exam: Present: normal inspection, full ROM, normal capillary refill. Absent: pedal edema, calf tenderness - Back Exam Back exam: Present: normal inspection, full ROM. Absent: CVA tenderness (R), CVA tenderness (L) - Neurological Exam Neurological exam: Present: alert, oriented X3, CN II-XII intact, normal gait, reflexes normal. Absent: abnormal gait, motor sensory deficit - Psychiatric Psychiatric exam: Present: normal mood - Skin Skin exam: Present: warm, intact, normal color ED Course Vital Signs 10/02/20 10/02/20 10/02/20 17:39 18:43 18:46 Temperature 97 F L Pulse Rate 64 48 L 48 L Respiratory 18 17 Rate Blood Pressure 143/88 Blood Pressure 145/85 [Right] O2 Sat by Pulse 95 99 Oximetry ED Medical Decision Making - Lab Data Result diagrams: 10/02/20 18:17 10/02/20 18:17 - EKG Data -: EKG Interpreted by Ga EKG shows normal: sinus rhythm Rate: bradycardia - EKG Data Interpretation: no acute changes - Radiology Data Radiology results: report reviewed - Medical Decision Making Patient is 45-year-old female with history of hypertension and migraine. Patient presented to the ER complaining of several day history of headache, dizziness and generalized body numbness. Patient stated that she was seen by her primary care physician and diagnosed with inner ear infection and started on prednisone. Patient stated that her symptoms is not improving. Patient denied any weakness, focal numbness or tingling sensation. No bowel or bladder incontinence. Patient is moving all extremities with no difficulties. Patient with no evidence of ataxia. Stroke scale is 0. Patient received meclizine, morphine and Reglan. Patient stated the symptoms completely resolved. CT brain is negative for acute finding. Labs reviewed and is unremarkable. I advised patient to follow-up with her primary care physician in the next 2 to 3 days and to return to the ER if she develop any new symptoms. Critical care attestation.: If time is entered above; I have spent that time in minutes in the direct care of this critically ill patient, excluding procedure time. ED Disposition Clinical Impression: Dizziness Disposition: DC-01 TO HOME OR SELFCARE Is pt being admited?: No Condition: Stable Instructions: Dizziness, [id number] Referrals: PRIMARY CARE, [Primary Care Provider] - 3-5 Days
[2020-10-02 18:36] LABS: Basophils % (Auto) 0.3 % (0.0-1.8); Eosinophils % (Auto) 0.1 % (0.0-4.3); Hematocrit 39.5 % (30.3-42.9); Lymphocytes # (Auto) 1.2 K/mm3 (1.2-5.4); Lymphocytes % (Auto) 16.5 % (13.4-35.0); Mean Corpuscular HGB Conc 33 % (30-34); Mean Corpuscular Volume 88 fl (79-97); Monocytes # (Auto) 0.4 K/mm3 (0.0-0.8); Monocytes % (Auto) 5.4 % (0.0-7.3); Platelet Count 188 K/mm3 (140-440); Red Cell Distribution Width 16.9 % (13.2-15.2)
[2020-10-02 18:50] LABS: Creatine Kinase MB 1.9 ng/mL (0.0-4.0)
[2020-10-02 18:51] LABS: Alanine Aminotransferase 14 units/L (7-56); Albumin 4.3 g/dL (3.9-5); BUN/Creatinine Ratio 23; Blood Urea Nitrogen 18 mg/dL (7-17); Calcium 9.1 mg/dL (8.4-10.2); Hemolysis Index 4
[2020-10-02 18:53] LABS: INR 1.12 (0.87-1.13)
[2020-10-02 18:54] LABS: Partial Thromboplastin Time 30.9 Sec. (24.2-36.6); Thrombin Time 16.5 Sec. (15.1-19.6)
[2020-10-02] MEDS ORDERED: MORPHINE 4 MG/1 ML INJ IM ONE (19:47)
[2020-10-02] MEDS ORDERED: METOCLOPRAMIDE 10 MG/2 ML INJ IM ONE (19:47)
[2020-10-02 20:20] LABS: Bilirubin,Urine NEG (Negative); Blood,Urine LG (Negative); Color,Urine Yellow (Yellow); Mucus,Urine FEW /HPF; Protein,Urine <15 mg/dL mg/dL (Negative); Urobilinogen,Urine < 2.0 mg/dL (<2.0)
[2020-10-02 20:22] LABS: RBC,Urine > 182.0 /HPF (0.0-6.0)
[2020-10-02 21:03] VITALS: BP 138/42
== END 2020-10-02 21:02 | disposition home or self-care (01) ==
LOC: ED 17:04
DX: R42 Dizziness and giddiness (principal); I10 Essential (primary) hypertension; M19.90 Unspecified osteoarthritis, unspecified site; J45.909 Unspecified asthma, uncomplicated; G43.909 Migraine, unspecified, not intractable, without status migrainosus; Z79.899 Other long term (current) drug therapy; Z98.890 Other specified postprocedural states
CPT/HCPCS: 36415; 70450; 71046; 80053; 81001; 82550; 82553; 82962; 84484; 85025; 85610; 85670; 85730; 93005; 96372; 99284; J2270; J2765

== ENCOUNTER 2020-12-07 23:18 | Emergency (ER) | payer SELFPAY ==
[2020-12-07 23:37] VITALS: BP 115/72
[2020-12-07] MEDS ORDERED: ASPIRIN 325 MG TAB PO ONE (23:37)
--- NOTE | 2020-12-07 23:58 | XRay Report ---
CHEST 2 VIEWS INDICATION / CLINICAL INFORMATION: chest pain. COMPARISON: 10/02/2020 FINDINGS: SUPPORT DEVICES: None. HEART / MEDIASTINUM: No significant abnormality. LUNGS / PLEURA: No significant pulmonary or pleural abnormality. No pneumothorax. ADDITIONAL FINDINGS: No significant additional findings. IMPRESSION: 1. No acute findings. Signer Name: Brennan Wolff MD Signed: 12/07/2020 11:53 PM Workstation Name: [id number]
--- NOTE | 2020-12-08 00:30 | Emergency Department Report ---
ED Chest Pain HPI - General Chief Complaint: Chest Pain Stated Complaint: CHEST PAIN PUI?: No Time Seen by Provider: 12/08/20 00:26 Source: patient, EMS Mode of arrival: Stretcher Limitations: No Limitations - History of Present Illness Initial Comments: Patient is a 45-year-old female who presents emergency room with complaints of chest pain. Patient dates her chest pain started on the left side of her chest and radiating down her left arm. Patient describes as a sharp pain. Patient states her chest pain started at 7 PM. Patient dates her chest pain is worsening. Patient states her chest is worsening so she called 9 1. [facility]. Patient states that EMS gave her aspirin had some relief and then she was given nitro and her chest pain went from a 10 out of 10 to a 1 out of 10. Patient states that her chest pain is better with rest and worse with exertion. Patient states she had some shortness of breath but that has resolved since getting nitro. Patient states he had nausea without vomiting. Patient denies fever and chills. Patient denies recent travel. Patient denies recent international travel. Patient denies exposure to the novel coronavirus. Patient denies sick contacts. Patient denies fever and chills. Patient denies cough. Patient denies diarrhea. Patient denies coming in contact with anybody with symptoms of the novel coronavirus. MD Complaint: chest pain -: Sudden Onset: during rest Pain Location: left chest Pain Radiation: LUE Severity: severe Severity scale (0 -10): 1 Quality: sharp Consistency: other Improves With: nitroglycerin (Improving), medication-other, rest Worsens With: exertion re: nausea, dyspnea. denies: vomting, diaphoresis, sense of impending doom Other Symptoms: denies: cough, fever, syncope, rash, acid taste in mouth, leg swelling, palpitations, burping Treatments Prior to Arrival: aspirin, nitroglycerin Aspirin use within the Past 7 Days: (1) Yes - Related Data Previous Rx's Medication Instructions Recorded Last Taken Type Ferrous Sulfate [Iron 325 MG] 325 mg PO TID #90 tablet 03/01/19 Unknown Rx Cyclobenzaprine [Flexeril 10 MG 10 mg PO QHS PRN #12 tablet 08/15/19 02/26/20 20:00 Rx TAB] Famotidine [Pepcid] 20 mg PO BID #30 tablet 02/27/20 Unknown Rx hydroCHLOROthiazide [HCTZ] 25 mg PO QDAY #30 tablet 02/27/20 Unknown Rx Butalb/Acetamin/Caff 50-325-40 1 tab PO Q8HR PRN #12 tab 07/31/20 Unknown Rx [Fioricet 50-325-40] amLODIPine 5 mg PO QDAY #30 tablet 07/31/20 Unknown Rx Meclizine [Antivert] 25 mg PO TID PRN #20 tablet 10/02/20 Unknown Rx hydroCHLOROthiazide [HCTZ] 25 mg PO QDAY #30 tablet 10/02/20 Unknown Rx Allergies Allergy/AdvReac Type Severity Reaction Status Date / Time No Known Allergies Allergy Unverified 03/01/19 08:53 Heart Score - HEART Score History: Moderately suspicious EKG: Non-specific Age: 45-65 Risk factors: 1-2 risk factors Troponin: < normal limit HEART Score: 4 - EKG Read Time Time EKG Completed: 23:32 EKG Read Time: 23:35 ED Review of Systems ROS: Stated complaint: CHEST PAIN Other details as noted in HPI Constitutional: denies: chills, fever Eyes: denies: eye pain, eye discharge, vision change ENT: denies: ear pain, throat pain Respiratory: see HPI, shortness of breath. denies: cough, wheezing Cardiovascular: as per HPI, chest pain. denies: palpitations Endocrine: no symptoms reported Gastrointestinal: nausea. denies: abdominal pain, diarrhea Genitourinary: denies: urgency, dysuria, discharge Musculoskeletal: denies: back pain, joint swelling, arthralgia Skin: denies: rash, lesions Neurological: denies: headache, weakness, paresthesias Psychiatric: denies: anxiety, depression Hematological/Lymphatic: denies: easy bleeding, easy bruising ED Past Medical Hx - Past Medical History Previous Medical History?: Yes Hx Hypertension: Yes Hx Arthritis: Yes Hx Headaches / Migraines: Yes Hx Asthma: Yes - Surgical History Past Surgical History?: Yes Additional Surgical History: C section - Family History Family history: no significant - Social History Smoking Status: Never Smoker Substance Use Type: None - Medications Home Medications: Home Medications Medication Instructions Recorded Confirmed Last Taken Type Ferrous Sulfate [Iron 325 MG] 325 mg PO TID #90 tablet 03/01/19 02/27/20 Unknown Rx Cyclobenzaprine [Flexeril 10 MG 10 mg PO QHS PRN #12 tablet 08/15/19 02/27/20 02/26/20 20:00 Rx TAB] Famotidine [Pepcid] 20 mg PO BID #30 tablet 02/27/20 Unknown Rx hydroCHLOROthiazide [HCTZ] 25 mg PO QDAY #30 tablet 02/27/20 Unknown Rx Butalb/Acetamin/Caff 50-325-40 1 tab PO Q8HR PRN #12 tab 07/31/20 Unknown Rx [Fioricet 50-325-40] amLODIPine 5 mg PO QDAY #30 tablet 07/31/20 Unknown Rx Meclizine [Antivert] 25 mg PO TID PRN #20 tablet 10/02/20 Unknown Rx hydroCHLOROthiazide [HCTZ] 25 mg PO QDAY #30 tablet 10/02/20 Unknown Rx ED Physical Exam - General Limitations: No Limitations General appearance: alert, in no apparent distress - Head Head exam: Present: atraumatic, normocephalic - Eye Eye exam: Present: normal appearance - ENT ENT exam: Present: mucous membranes moist - Neck Neck exam: Present: normal inspection - Respiratory Respiratory exam: Present: normal lung sounds bilaterally. Absent: respiratory distress, wheezes, rales - Cardiovascular Cardiovascular Exam: Present: regular rate, normal rhythm. Absent: systolic murmur, diastolic murmur, rubs, gallop - GI/Abdominal GI/Abdominal exam: Present: soft, normal bowel sounds. Absent: distended, tenderness, guarding - Extremities Exam Extremities exam: Present: normal inspection - Back Exam Back exam: Present: normal inspection - Neurological Exam Neurological exam: Present: alert, oriented X3 - Psychiatric Psychiatric exam: Present: normal affect, normal mood - Skin Skin exam: Present: warm, dry, intact, normal color. Absent: rash ED Course Vital Signs 12/07/20 23:25 Temperature 97.6 F Pulse Rate 50 L Respiratory 18 Rate Blood Pressure 115/72 O2 Sat by Pulse 100 Oximetry - Reevaluation(s) Reevaluation #1: I discussed all results with patient. I discussed plan of care with patient. Patient refuses to be admitted. They states she cannot be admitted. Patient states she has kids at home. I discussed the risk of not being admitted. Patient voiced understanding of the risk. Patient signed AMA form. AMA for sign was witnessed by the nurse. Even though the patient is leaving AGAINST MEDICAL ADVICE, the patient was given a formal discharge. Patient given discharge instructions. Patient voiced understanding of discharge instructions. Patient will be referred to a rehabilitation therapist as an outpatient. 12/08/20 01:41 - Consultations Consultation #1: Hospitalist consulted for admission. Hospitalist to admit patient. 12/08/20 01:31 MARIANNA score - Marianna Score Age > 65: (0) No Aspirin use within the Past 7 Days: (0) No 3 or more CAD Risk Factors: (0) No 2 or more Angina events in past 24 hrs: (1) Yes Known CAD with more than 50% Stenosis: (0) No Elevated Cardiac Markers: (0) No ST Deviation Greater than 0.5mm: (0) No MARIANNA Score: 1 ED Medical Decision Making - Lab Data Result diagrams: 12/07/20 23:53 12/07/20 23:53 - EKG Data -: EKG Interpreted by Me EKG shows normal: sinus rhythm, axis, intervals, QRS complexes, ST-T waves Rate: normal - Radiology Data Radiology results: report reviewed, image reviewed interpreted by me: Chest x-ray: No pneumonia, no pneumothorax, no foreign body, no osseous fin dings, no acute findings CHEST 2 VIEWS INDICATION / CLINICAL INFORMATION: SOB. COMPARISON: None available. FINDINGS: SUPPORT DEVICES: None. HEART / MEDIASTINUM: No significant abnormality. LUNGS / PLEURA: No significant pulmonary or pleural abnormality. No pneumothor ax. ADDITIONAL FINDINGS: No significant additional findings. IMPRESSION: 1. No acute findings. - Medical Decision Making Patient is a 45-year-old female that presents emergency room with complaints of chest pain rating to her left upper extremity. Patient had chest pain for approximately 4 to 5 hours prior to coming. Patient called EMS because chest pain is worsening. Patient brought in by EMS and was given aspirin and nitro and it improved her chest pain dramatically. Patient states the aspirin did not go but she was almost instantly relieved after the sublingual nitro. Patient's EKG is negative for acute findings. Patient's EKG shows no ST segment elevation. I personally reviewed the EKG. Patient had a chest x-ray which was negative for acute finding. I personally reviewed the chest x-ray. Patient had labs done which were essentially unremarkable. Patient troponin was negative. Patient is high risk for a possible ACS since the nitro improves her chest brenton n. Patient has an elevated heart score. I attempted to admit the patient to the hospital service for further evaluation treatment and rule out ACS. The patient refused to be admitted. Patient signed AMA form. I discussed all results with patient. I discussed the risk of leaving the hospital AGAINST MEDICAL ADVICE. Patient voiced understanding of the risk. Patient is of sound mind and body. Critical care time documented due to the multiple reassessments, prolonged time at the bedside, interpretation of diagnostics and labs. - Differential Diagnosis ACS, chest pain, Critical Care Time: Yes Critical care time in (mins) excluding proc time.: 35 Critical care attestation.: If time is entered above; I have spent that time in minutes in the direct care of this critically ill patient, excluding procedure time. Critical Care Time: 35 minutes ED Disposition Clinical Impression: SOB (shortness of breath), Hypokalemia Chest pain Qualifiers: Chest pain type: unspecified Qualified Code(s): R07.9 - Chest pain, unspecified Disposition: DC-07 LEFT AGAINST MED ADVICE Is pt being admited?: No Does the pt Need Aspirin: No Condition: Critical Instructions: Shortness of Breath, Adult, Nonspecific Chest Pain, Adult, [id number], Potassium Content of Foods Additional Instructions: Patient to follow-up with primary care in 2 to 3 days. Patient to follow-up with rehabilitation therapist in 2 to 3 days. Patient to rest. Patient to increase water. Patient to avoid strenuous exercise or heavy lifting until cleared by biochemistry professor. Patient to take Tylenol or ibuprofen as needed for pain. Patient to monitor blood pressure at home. Patient to continue all medications. Patient to keep a blood pressure log and take blood pressure log to follow-up appointments. Patient to eat a low-salt diet. Patient eat a heart healthy diet.. Patient to do daily banana and have her potassium rechecked by her primary care in 2 to 3 days. Patient to return to the ER if condition worsens, changes or new symptoms arise. Referrals: PRIMARY CARE, [Primary Care Provider] - 2-3 Days CLINT HUSAIN MD [Staff Physician] - 2-3 Days Time of Disposition: 01:35
[2020-12-08 00:56] LABS: Alanine Aminotransferase 12 units/L (7-56); Albumin 4.4 g/dL (3.9-5); BUN/Creatinine Ratio 16; Blood Urea Nitrogen 13 mg/dL (7-17); Calcium 9.1 mg/dL (8.4-10.2); Hemolysis Index 7
[2020-12-08 01:09] LABS: Basophils # (Auto) 0.1 K/mm3 (0.0-0.1); Basophils % (Auto) 1.1 % (0.0-1.8); Eosinophils # (Auto) 0.2 K/mm3 (0.0-0.4); Eosinophils % (Auto) 2.7 % (0.0-4.3); Hemoglobin 13.1 gm/dl (10.1-14.3); Lymphocytes # (Auto) 2.1 K/mm3 (1.2-5.4); Mean Corpuscular HGB Conc 34 % (30-34); Mean Corpuscular Volume 90 fl (79-97); Monocytes # (Auto) 0.5 K/mm3 (0.0-0.8); Monocytes % (Auto) 8.9 % (0.0-7.3); Platelet Count 223 K/mm3 (140-440); Red Blood Count 4.33 M/mm3 (3.65-5.03); Red Cell Distribution Width 14.4 % (13.2-15.2)
== END 2020-12-08 02:09 | disposition left against medical advice (07) ==
LOC: ED 23:18
DX: E87.6 Hypokalemia (principal); R06.02 Shortness of breath; R07.89 Other chest pain; I10 Essential (primary) hypertension; M19.91 Primary osteoarthritis, unspecified site; G43.909 Migraine, unspecified, not intractable, without status migrainosus; J45.909 Unspecified asthma, uncomplicated; Z98.890 Other specified postprocedural states; Z79.899 Other long term (current) drug therapy
CPT/HCPCS: 36415; 71046; 80053; 84703; 85025; 93005